=== PATIENT | female | born 1940 | race Two or more races ===

== ENCOUNTER 2018-04-10 16:56 | Emergency (ER) | payer MEDICARE, OTHER ==
[2018-04-10] MEDS ORDERED: Diatrizoate Meglumine/Diatri 30 mL Sol ONE ×2 (17:27→17:40)
[2018-04-10] MEDS ORDERED: Diatrizoate Meglumine/Diatri 30 mL Sol PO ONE ×2 (17:40)
[2018-04-10] MEDS ORDERED: Triple Antibiotic 0.94 gm Pkt TP ONE (18:14)
[2018-04-10] MEDS ORDERED: Triple Antibiotic 0.94 gm Pkt TP STA (18:18)
--- NOTE | 2018-04-10 18:52 | ED Physician Chart ---
ED Chief Complaint/HPI - Patient Information Date Seen:: 04/10/18 Time Seen:: 16:59 Chief Complaint:: g tube displaced History of Present Illness:: g tube displaced Allergies:: Allergies Allergy/AdvReac Type Severity Reaction Status Date / Time No Known Allergies Allergy Verified 04/10/18 16:58 Vitals:: Vital Signs - 8 hr 04/10/18 04/10/18 04/10/18 16:59 17:07 18:40 Temp 99.0 F 98 F HR 82 84 100 RR 20 36 BP 130/72 151/75 O2 Sat % 99 100 94 04/10/18 18:44 Temp HR 93 RR BP O2 Sat % 96 Historian:: EMS, Medical Records Review:: Nurse's Note Reviewed, Transfer documents Reviewed ED Review of Systems - Review of Systems General/Constitutional: No fever, No chills, No weight loss, No weakness, No diaphoresis, No edema, No loss of appetite Skin: No skin lesions, No rash, No bruising Head: No headache, No light-headedness Eyes: No loss of vision, No pain, No diplopia ENT: No earache, No nasal drainage, No sore throat, No tinnitus Neck: No neck pain, No swelling, No thyromegaly, No stiffness, No mass noted Cardio Vascular: No chest pain, No palpitations, No PND, No orthopnea, No edema Pulmonary: No SOB, No cough, No sputum, No wheezing GI: Other (displaced g tube) G/U: No dysuria, No frequency, No hematuria Musculoskeletal: No bone or joint pain, No back pain, No muscle pain Endocrine: No polyuria, No polydipsia Psychiatric: Prior psych history Hematopoietic: No bruising, No lymphadenopathy Allergic/Immuno: No urticaria, No angioedema Neurological: No syncope, No focal symptoms, No weakness, No paresthesia, No headache, No seizure, No dizziness, No confusion, No vertigo ED Past Medical History - Past Medical History Obtainable: No Past Medical History: CVA/TIA, Other (venilator dependent; aspiration risk) Family Medical History - Family Member Mother History Unknown: Yes ED Physical Exam - Physical Examination Other Gen/Cons comments:: chronically ill appearing woman with all extremities contracted. patient has a trach present and she is on the ventilator. the g tube was displaced Head: Atraumatic ENMT: External ears, nose nl Other Neck comments:: trach in place Respiratory: Nl effort/Exclusion, Clear to Auscultation, No Wheeze/Rhonchi/Rales Cardio Vascular: RRR GI: No tenderness/rebounding/guarding, No organomegaly, No hernia, Normal BS's, Nondistended, No mass/bruits, No McBurney tenderness Other GI comments:: Beefy granulation tissue present around stoma site. G tube still in place and pulled. Balloon no longer inflated. This gtube appears to be very old. : No CVA tenderness Other Extremities comments:: all extremities contracted. Other Neuro/Psych comments:: all extremities contracted. ED Assessment - Procedures Procedures:: placement of G tube (same size as was displaced earlier). Beefy granulation tissue present around stoma site. Gastrograffin study read by me. Good placement in the stomach. Contrast continued into the duodenum. three 2-0 Nylon sutures placed to secure g tube in place after injection with 1 % lidocaine with epinephrine and prepping with Betadine. Laceration Type:: None ED Septic Shock - . Is Septic Shock (SBP<90, OR Lactate>4 mmol\L) present?: No - <6hrs of presentation: Vital Signs: Vital Signs - 8 hr 04/10/18 04/10/18 04/10/18 16:59 17:07 18:40 Temp 99.0 F 98 F HR 82 84 100 RR 20 36 BP 130/72 151/75 O2 Sat % 99 100 94 04/10/18 18:44 Temp HR 93 RR BP O2 Sat % 96 ED Reassessment (Disposition) - Reassessment Reassessment Condition:: Improved - Diagnosis Diagnosis:: G tube displacement Anoxic brain injury Chronic ventilator dependence Aspiration risk - Aftercare/Follow up Instructions Aftercare/Follow-Up Instructions:: Refer to Discharge Instructions Notes:: may remove sutures at 10 to 14 days after placement. In the meantime, clean the hydrogen peroxide and triple antibiotic ointment. - Patient Disposition Discharge/Transfer:: [facility]F Condition at Disposition:: Stable, Improved
--- NOTE | 2018-04-11 08:34 | Diagnostic Imaging Report ---
Upper GI with Gastrografin HISTORY: G-tube confirmation COMPARISON: None FINDINGS: Property Specialist view demonstrates copious stool throughout the colon. Nasogastric feeding tube is noted. 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 The following images demonstrates contrast opacification of the stomach and small bowel loops. IMPRESSION: Intraluminal confirmation of patient's percutaneous gastric feeding tube. Copious stool. Correlate clinically for constipation.
== END 2018-04-10 18:51 ==
LOC: ER 16:56
DX: K94.23 Gastrostomy malfunction (principal); G93.1 Anoxic brain damage, not elsewhere classified; Y84.4 Aspiration of fluid as the cause of abnormal reaction of the patient, or of later complication, without mention of misadventure at the time of the procedure; Z99.11 Dependence on respirator [ventilator] status; Z86.73 Personal history of transient ischemic attack (TIA), and cerebral infarction without residual deficits
CPT/HCPCS: 94002; X6488; Z7502; Z7610